=== PATIENT | female | born 1980 | race Caucasian/White ===

== ENCOUNTER 2017-04-05 18:24 | Emergency (ER) | payer MEDICAID ==
[2017-04-05 18:24] VITALS: BMI 25.0
[2017-04-05 18:51] VITALS: BP 123/84; RESP 18; TEMP 98.1; O2SAT 100
--- NOTE | 2017-04-05 18:58 | C.PDOC ---
History Of Present Illness Niada Lozoya, a 36 year old female, presents to the ED complaining that her right ear has been clogged since yesterday. The patient states that she tried to clean the ear out with a Qtip but nothing came out. Patient states she is not sick. Denies fever, dizziness, Time Seen by Provider: 04/05/17 18:49 Chief Complaint (Nursing): ENT Problem History Per: Patient History/Exam Limitations: no limitations Onset/Duration Of Symptoms: Days Current Symptoms Are (Timing): Still Present Severity: Mild Past Medical History Reviewed: Historical Data, Nursing Documentation, Vital Signs Vital Signs: Last Vital Signs Temp 98.1 F 04/05/17 19:34 Pulse 90 04/05/17 19:34 Resp 18 04/05/17 19:34 BP 123/84 04/05/17 19:34 Pulse Ox 100 04/05/17 19:34 - Medical History PMH: Anemia, Anxiety, Depression Denies: Chronic Kidney Disease Surgical History: No Surg Hx Family History: States: Unknown Family Hx - Social History Hx Tobacco Use: No Hx Alcohol Use: No Hx Substance Use: No - Immunization History Hx Tetanus Toxoid Vaccination: No Hx Influenza Vaccination: Yes Hx Pneumococcal Vaccination: No Review Of Systems Except As Marked, All Systems Reviewed And Found Negative. ENT: Negative for: Ear Pain (Clogged right ear) Physical Exam - Physical Exam Appears: Well, Non-toxic, No Acute Distress Skin: Normal Color, Warm, Dry, No Rash Head: Atraumatic, Normacephalic, No Tenderness, No Swelling Eye(s): bilateral: Normal Inspection, PERRL, EOMI Ear(s): Bilateral: Normal (no evidence of cerumen in canals) Nose: Normal, No Discharge Oral Mucosa: Moist, No Dry, No Drooling Tongue: Normal Appearing, No Swelling, No Laceration Lips: Normal Appearing, No Swelling, No Abrasion Teeth: Normal Dentition, No Caries, No Edentulous Gingiva: Normal Appearing, No Erythema, No Swelling Throat: Normal, No Erythema, No Exudate Cardiovascular: Rhythm Regular, No Edema, No Friction Rub, No Murmur Respiratory: Normal Breath Sounds, No Rhonchi Gastrointestinal/Abdominal: No Tenderness Neurological/Psych: Oriented x3, Normal Speech, Normal Cognition Gait: Steady ED Course And Treatment O2 Sat by Pulse Oximetry: 100 (RA) Pulse Ox Interpretation: Normal Medical Decision Making Medical Decision Making: ear exam is normal with no tenderness. possible serous otitis media Disposition - Disposition Referrals: Nelly Brody MD [Medical Doctor] - Disposition: HOME/ ROUTINE Disposition Time: 19:24 Condition: GOOD Additional Instructions: Follow up with the medical doctor within 1-2 days. Return if worsened. Prescriptions: Loratadine [Claritin] 10 mg PO DAILY #10 tab Pseudoephedrine HCl 30 mg PO DAILY #10 tablet Instructions: Serous Otitis Media (ED) Forms: [employer] (Libyan) - Clinical Impression Clinical Impression: Serous otitis media - Scribe Statement The provider has reviewed the documentation as recorded by the Scribe Lilian Ramirez All medical record entries made by the Gabrielleibe were at my direction and personally dictated by me. I have reviewed the chart and agree that the record accurately reflects my personal performance of the history, physical exam, medical decision making, and the department course for this patient. I have also personally directed, reviewed, and agree with the discharge instructions and disposition.
--- NOTE | 2017-04-05 19:16 | C.PDOC ---
Time Seen by Provider: 04/05/17 18:49 Chief Complaint (Nursing): ENT Problem Past Medical History Vital Signs: Last Vital Signs Temp 98.1 F 04/05/17 18:32 Pulse 92 H 04/05/17 18:32 Resp 18 04/05/17 18:32 BP 123/84 04/05/17 18:32 Pulse Ox 100 04/05/17 19:01 - Medical History PMH: Anemia, Anxiety, Depression Denies: Chronic Kidney Disease Surgical History: No Surg Hx Family History: States: Unknown Family Hx - Social History Hx Tobacco Use: No Hx Alcohol Use: No Hx Substance Use: No - Immunization History Hx Tetanus Toxoid Vaccination: No Hx Influenza Vaccination: Yes Hx Pneumococcal Vaccination: No ED Course And Treatment O2 Sat by Pulse Oximetry: 100 (RA) Disposition - Disposition Referrals: Nelly Brody MD [Medical Doctor] - Disposition: HOME/ ROUTINE Disposition Time: 19:08 Condition: GOOD Additional Instructions: Follow up with the medical doctor within 1-2 days. Return if worsened. Prescriptions: Loratadine [Claritin] 10 mg PO DAILY #10 tab Pseudoephedrine HCl 30 mg PO DAILY #10 tablet Instructions: Serous Otitis Media (ED) Forms: [employer] (Hebrew) - Clinical Impression Clinical Impression: Serous otitis media
[2017-04-05 19:36] VITALS: PULSE 90
== END 2017-04-05 19:34 | disposition home or self-care (01) ==
LOC: C.ER 18:24
DX: H65.91 Unspecified nonsuppurative otitis media, right ear (principal); Z87.891 Personal history of nicotine dependence

== ENCOUNTER 2018-05-28 22:40 | Emergency (ER) | payer SELFPAY ==
[2018-05-28 22:52] VITALS: BMI 26.8
[2018-05-28 22:57] VITALS: TEMP 98
[2018-05-28 23:11] LABS: BASO # 0.1 K/uL (0.0-0.2); BASO % 0.9 % (0.0-2.0); EOS # 0.3 K/uL (0.0-0.7); EOS % 2.6 % (0.0-4.0); LYMPH # 3.9 K/uL (1.0-4.3); LYMPH % 30.5 % (20.0-40.0); MEAN CELL VOLUME 85.2 fL (81.0-99.0); MEAN CORPUSCULAR HEMOGLOBIN 29.5 pg (27.0-31.0); MEAN CORPUSCULAR HGB CONC 34.6 g/dL (33.0-37.0); MEAN PLATELET VOLUME 8.7 fL (7.2-11.7); MONO # 0.8 K/uL (0.0-0.8); MONO % 6.4 % (0.0-10.0); NEUT # 7.6 K/uL (1.8-7.0); NEUT % 59.6 % (50.0-75.0); NRBC % 0.1 % (0.0-2.0); RBC 4.42 Mil/uL (3.80-5.20); RED CELL DISTRIBUTION WIDTH 14.6 % (11.5-14.5); WHITE BLOOD COUNT 12.7 K/uL (4.8-10.8)
[2018-05-28 23:13] LABS: SQUAMOUS EPITHIAL 11 /hpf (0-5); URINE BACTERIA RARE (<OCC); URINE BILIRUBIN NEGATIVE (NEGATIVE); URINE BLOOD 1+ (NEGATIVE); URINE CLARITY Hazy (Clear); URINE COLOR Yellow (YELLOW); URINE GLUCOSE (UA) NORMAL (Normal); URINE HYALINE CAST 0-2 /lpf (0-2); URINE LEUKOCYTE ESTERASE NEG Leu/uL (Negative); URINE PROTEIN NEGATIVE (NEGATIVE); URINE UROBILINOGEN NORMAL mg/dL (0.2-1.0)
[2018-05-28 23:22] LABS: ALB/GLOB RATIO 1.3 (1.0-2.1); ALBUMIN 4.4 g/dL (3.5-5.0); ALT/SGPT 39 U/L (9-52); AST/SGOT 27 U/L (14-36); BLOOD UREA NITROGEN 10 mg/dL (7-17); CALCIUM 9.3 mg/dl (8.6-10.4); GFR NON-AFRICAN AMERICAN > 60; LIPASE 103 U/L (23-300)
[2018-05-28] MEDS ORDERED: Sodium Chloride 0.9% 500 ML IV ONE (23:23)
--- NOTE | 2018-05-28 23:39 | C.PDOC ---
History Of Present Illness 38 y.o female presents to the ED complaining of suprapubic pain and frequency for one day. The patient also complains of generalized fatigue. She denies any fever, chest pain, diarrhea or SOB. Time Seen by Provider: 05/28/18 22:51 Chief Complaint (Nursing): Abdominal Pain History Per: Patient History/Exam Limitations: no limitations Onset/Duration Of Symptoms: Days Current Symptoms Are (Timing): Still Present Location Of Pain/Discomfort: Suprapubic Quality Of Discomfort: "Pain" Associated Symptoms: denies: Diarrhea, Chest Pain Recent travel outside of the [place]: No Past Medical History Reviewed: Historical Data, Nursing Documentation, Vital Signs Vital Signs: Last Vital Signs Temp 98 F 05/28/18 22:50 Pulse 105 H 05/28/18 22:50 Resp 20 05/28/18 22:50 BP 164/104 H 05/28/18 22:50 Pulse Ox 99 05/28/18 22:50 - Medical History PMH: Anemia, Anxiety, Depression Denies: Chronic Kidney Disease Surgical History: Other Surgeries: Tubal Ligation Family History: States: Unknown Family Hx - Social History Hx Tobacco Use: No Hx Alcohol Use: Yes Hx Substance Use: No - Immunization History Hx Tetanus Toxoid Vaccination: No Hx Influenza Vaccination: Yes Hx Pneumococcal Vaccination: No Review Of Systems Except As Marked, All Systems Reviewed And Found Negative. Constitutional: Negative for: Fever Cardiovascular: Negative for: Chest Pain Respiratory: Negative for: Cough, Shortness of Breath, SOB with Excertion, Wheezing Gastrointestinal: Positive for: Abdominal Pain. Negative for: Nausea, Vomiting, Diarrhea, Constipation Genitourinary: Positive for: Frequency, Other (suprapubic pain). Negative for: Dysuria, Incontinence, Rash Musculoskeletal: Negative for: Neck Pain Skin: Negative for: Rash Neurological: Negative for: Weakness, Numbness Physical Exam - Physical Exam Appears: Well, Non-toxic, No Acute Distress Skin: Normal Color, Warm, Dry Head: Atraumatic, Normacephalic Eye(s): bilateral: PERRL, EOMI Oral Mucosa: Moist Neck: Supple Chest: Symmetrical Cardiovascular: Rhythm Regular, No Murmur Respiratory: Normal Breath Sounds, No Rales, No Rhonchi, No Wheezing Gastrointestinal/Abdominal: Soft, No Tenderness, No Distention Back: Normal Inspection, No CVA Tenderness Extremity: Normal ROM Extremity: Bilateral: Atraumatic, Normal Color And Temperature, Normal ROM Neurological/Psych: Oriented x3 Gait: Steady ED Course And Treatment - Laboratory Results Result Diagrams: 05/28/18 23:00 05/28/18 23:00 O2 Sat by Pulse Oximetry: 99 (RA) Pulse Ox Interpretation: Normal Medical Decision Making Medical Decision Making: Impression: 38 y.o female presents to the ED complaining of suprapubic pain for one day. Plan: -CMP -Lipase -Magnesium -Phosphorous -CBC -UA -IV Fluids -K-Dur 20 mEq Disposition - Disposition Disposition: HOME/ ROUTINE Disposition Time: 00:10 Condition: GOOD Additional Instructions: Follow-up with PMD within 2 days. Return to ED if condition worsens. Take full course of antibiotics Prescriptions: Cephalexin [Keflex] 500 mg PO TID #21 capsule Instructions: Urinary Tract Infections in Adults, Hypokalemia (DC) Forms: [employer] ([place]an) - Clinical Impression Clinical Impression: UTI (urinary tract infection), Hypokalemia - PA / MATERIAL HAULER / Resident Statement MD/DO has reviewed & agrees with the documentation as recorded. - Scribe Statement The provider has reviewed the documentation as recorded by the Scribe (Zulay Perez) Provider Attestation: All medical record entries made by the Scribe were at my direction and personally dictated by me. I have reviewed the chart and agree that the record accurately reflects my personal performance of the history, physical exam, medical decision making, and the department course for this patient. I have also personally directed, reviewed, and agree with the discharge instructions and disposition.
[2018-05-28 23:54] VITALS: BP 132/86; PULSE 63; RESP 16
[2018-05-28 23:57] VITALS: O2SAT 99
[2018-05-29] MEDS ORDERED: Potassium Chloride 20 mEq ER Tab PO ONE (00:15)
[2018-05-29] MEDS ORDERED: Potassium Chloride 20 mEq ER Tab PO SCH (10:00)
== END 2018-05-29 00:29 | disposition home or self-care (01) ==
LOC: C.ER 22:40
DX: N39.0 Urinary tract infection, site not specified (principal); E87.6 Hypokalemia
CPT/HCPCS: 80053; 81001; 83690; 83735; 84100; 85025; 94770; 96360; 99283; J7040

== ENCOUNTER 2018-06-21 00:58 | Emergency (ER) | payer SELFPAY ==
[2018-06-21 00:59] VITALS: BMI 26.8
[2018-06-21 01:07] VITALS: RESP 20
[2018-06-21] MEDS ORDERED: Aspirin 325 mg EC Tablets PO STA (01:09)
--- NOTE | 2018-06-21 01:27 | C.PDOC ---
History Of Present Illness patient states that she was nappin in a recliner and when she woke up felt some chest pain, back pain and some nausea. pain is reproducible and worsens with movement. No f/c/. Speaking in complete sentences Time Seen by Provider: 06/21/18 01:27 EDT Chief Complaint (Nursing): Chest Pain History Per: Patient History/Exam Limitations: no limitations Onset/Duration Of Symptoms: Hrs Current Symptoms Are (Timing): Still Present Context: Other Severity: Mild Pain Scale Rating Of: 3 Quality: Dull Associated Symptoms: denies: Nausea Exacerbating Factors: Turning, Movement Alleviating Factors: None Recent travel outside of the [place]: No Additional History Per: Patient Past Medical History Reviewed: Historical Data, Nursing Documentation, Vital Signs Vital Signs: Last Vital Signs Temp 97.8 F 06/21/18 01:10 EDT Pulse 86 06/21/18 01:10 EDT Resp 20 06/21/18 01:10 EDT BP 151/92 H 06/21/18 01:10 EDT Pulse Ox 100 06/21/18 01:10 EDT - Medical History PMH: Anemia, Anxiety, Depression Denies: Chronic Kidney Disease Surgical History: Family History: States: Unknown Family Hx - Social History Hx Tobacco Use: No Hx Alcohol Use: No Hx Substance Use: No - Immunization History Hx Tetanus Toxoid Vaccination: No Hx Influenza Vaccination: Yes Hx Pneumococcal Vaccination: No Review Of Systems Constitutional: Negative for: Fever, Chills Eyes: Negative for: Vision Change ENT: Negative for: Throat Pain Cardiovascular: Positive for: Chest Pain Respiratory: Negative for: Shortness of Breath Gastrointestinal: Negative for: Abdominal Pain Genitourinary: Negative for: Dysuria Musculoskeletal: Positive for: Back Pain Skin: Negative for: Rash Neurological: Negative for: Weakness Psych: Positive for: Anxiety Physical Exam - Physical Exam Appears: Non-toxic, No Acute Distress Skin: Warm, Dry Head: Normacephalic Eye(s): bilateral: Normal Inspection Oral Mucosa: Moist Neck: Supple Chest: Symmetrical Cardiovascular: Rhythm Regular Respiratory: No Rales, No Rhonchi, No Wheezing Gastrointestinal/Abdominal: Soft, No Tenderness, No Distention Back: Normal Inspection Extremity: Normal ROM Extremity: Bilateral: Atraumatic Neurological/Psych: Oriented x3 Gait: Steady ED Course And Treatment - Laboratory Results Result Diagrams: 06/21/18 01:39 EST 06/21/18 01:39 EST ECG: Interpreted By Me, Viewed By Me ECG Rhythm: Sinus Rhythm (81), Nonspecific Changes O2 Sat by Pulse Oximetry: 100 Pulse Ox Interpretation: Normal - Radiology CXR: Interpreted by Me, Viewed By Me CXR Interpretation: No: Infiltrates, Fracture, Pnemothorax Reevaluation Time: 03:09 Reassessment Condition: Improved Disposition Counseled Patient/Family Regarding: Studies Performed, Diagnosis, Need For Followup, Rx Given - Disposition Referrals: [facility] [Outside] [facility] [Outside] Disposition: HOME/ ROUTINE Disposition Time: 01:27 Condition: FAIR Additional Instructions: Please return if symptoms recur Prescriptions: Naproxen [Naprosyn] 1 tab PO BID PRN #25 tab PRN Reason: Pain Ondansetron ODT [Zofran ODT] 1 odt PO BID PRN #6 odt PRN Reason: Nausea/Vomiting Instructions: Costochondritis (DC) Forms: [employer] (Telugu) - Clinical Impression Clinical Impression: Costochondral chest pain
[2018-06-21 01:43] LABS: BASO # 0.1 K/uL (0.0-0.2); BASO % 0.7 % (0.0-2.0); EOS # 0.3 K/uL (0.0-0.7); EOS % 2.6 % (0.0-4.0); HEMOGLOBIN 12.1 g/dL (11.0-16.0); LYMPH % 25.3 % (20.0-40.0); MEAN CELL VOLUME 85.8 fL (81.0-99.0); MEAN CORPUSCULAR HEMOGLOBIN 28.8 pg (27.0-31.0); MEAN CORPUSCULAR HGB CONC 33.6 g/dL (33.0-37.0); MONO # 0.7 K/uL (0.0-0.8); MONO % 6.2 % (0.0-10.0); NEUT # 7.7 K/uL (1.8-7.0); NEUT % 65.2 % (50.0-75.0); NRBC % 0.1 % (0.0-2.0); RBC 4.21 Mil/uL (3.80-5.20); RED CELL DISTRIBUTION WIDTH 14.4 % (11.5-14.5); WHITE BLOOD COUNT 11.8 K/uL (4.8-10.8)
[2018-06-21 01:46] LABS: INR 1.1; PROTHROMBIN TIME 11.9 SECONDS (9.7-12.2)
[2018-06-21 02:01] LABS: HCG,QUALITATIVE URINE NEGATIVE (NEGATIVE); SQUAMOUS EPITHIAL 5 /hpf (0-5); URINE BACTERIA RARE (<OCC); URINE BILIRUBIN NEGATIVE (NEGATIVE); URINE BLOOD 2+ (NEGATIVE); URINE CLARITY Hazy (Clear); URINE COLOR Yellow (YELLOW); URINE GLUCOSE (UA) NORMAL (Normal); URINE LEUKOCYTE ESTERASE NEG Leu/uL (Negative); URINE PROTEIN NEGATIVE (NEGATIVE); URINE UROBILINOGEN NORMAL mg/dL (0.2-1.0)
[2018-06-21 02:05] LABS: ALB/GLOB RATIO 1.3 (1.0-2.1); ALBUMIN 4.1 g/dL (3.5-5.0); ALT/SGPT 37 U/L (9-52); AST/SGOT 28 U/L (14-36); BLOOD UREA NITROGEN 10 mg/dL (7-17); CALCIUM 8.9 mg/dl (8.6-10.4); GFR NON-AFRICAN AMERICAN > 60
[2018-06-21 02:34] VITALS: BP 113/60; PULSE 62; TEMP 97.3
[2018-06-21 03:11] VITALS: O2SAT 100
--- NOTE | 2018-06-22 21:49 | CARD ---
APPROVED REPORT Date of service: 06/21/2018 EKG Measurement Heart [id number] <Conclusion> Normal sinus rhythm Possible Left atrial enlargement Borderline ECG
== END 2018-06-21 03:24 | disposition home or self-care (01) ==
LOC: C.ER 00:58
DX: R07.89 Other chest pain (principal)
CPT/HCPCS: 80053; 81001; 84484; 84703; 85025; 85610; 85730; 93005; 96374; 99284; J2405